=== PATIENT | male | born 1930 | race Caucasian/White ===

== ENCOUNTER 2018-04-05 22:04 | Inpatient (IN) | payer OTHER ==
[~2018-04-05] VITALS: Ht 170.2 cm; Wt 90.5 kg
[~2018-04-05 22:04] MED LIST: ALDACTONE25 MG PO; APLISOL5 TUB UNIT ID; ARICEPT10 MG PO; B-121000 MC2 PO; BIOFLEX TABLET1 EACH PO; CARDIZEM CD,CA180 MG PO; CELECOXIB200 MG PO; CENTRUM MEN'S1 EACH PO; CLOBEX118 ML TP; COUMADIN1 MG PO; COUMADIN5 MG PO; CRESTOR20 MG PO; CYMBALTA30 MG PO; DAILY VITE1 EAC1 PO; DOVONEX 0.005%60 GM PO; DOVONEX 0.005%60 GM TP; DULCOLAX10 MG PR; ELIQUIS2.5 MG PO; ELIQUIS5 MG PO; ENDOCET 5-3251 EACH PO; ENEMA133 M2 PR; ISTALOL5 ML BOTH EYES; LASIX40 MG PO; LO-DOSE ASPIRIN81 M1 PO; MELATONIN1 MG PO; MELOXICAM7.5 MG PO; MILK OF MAGN PO; MIRALAX17 GM PO; ONDANSETRON ODT4 MG PO; OSTEO BI-FLEX1 EAC1 PO; OXYCODONE-ACET1 EACH PO; PANTOPRAZOLE SO40 MG PO; PERCOCET 10/1 TABLET PO; PRAVACHOL10 MG PO; PROBIOTIC1 EAC1 PO; RANITIDINE HCL150 MG PO; SYNTHROID25 MCG PO; SYNTHROID50 MCG PO; TIMOPTIC-0100 DROP/1 BOTH EYES; TYLENOL REGULA325 MG PO; ULTRAM50 MG PO; VITAMIN D2000 UNIT PO; VITAMIN D32000 UNI1 PO; [UNRECOGNIZED DRUG - OTHER] TP
[2018-04-06 07:38] VITALS: BP 147/72
[2018-04-06 13:42] LABS: HEMATOCRIT 39.6 % (38.0-50.0); HEMOGLOBIN 13.7 G/DL (12.5-16.6); MCH 33.9 PG (29.0-34.0); MCHC 34.6 G/DL (30.0-36.0); PLATELET COUNT 82 K/uL (156-360); RBC DIS.WIDTH-CV 14.2 % (11.8-14.6); RBC DIS.WIDTH-SD 51.6 % (39-53); RED BLOOD COUNT 4.04 M/uL (4.00-5.50); WHITE BLOOD COUNT 7.4 K/uL (4.1-10.2)
[2018-04-06 17:20] VITALS: BP 160/80
[2018-04-06 20:06] VITALS: BP 180/75
[2018-04-06 23:32] VITALS: BP 146/88
[2018-04-07 04:14] VITALS: BP 169/81
[2018-04-07 05:52] LABS: CHLORIDE 107 MEQ/L (99-109); CREATININE 1.1 MG/DL (0.6-1.3); GFR ESTIMATE (CALCULATED) > 59 mL/min/ (58.99-99999); GLUCOSE 119 mg/dL (70-99); POTASSIUM 3.9 MEQ/L (3.7-5.4); SODIUM 139 MEQ/L (136-147); UREA NITROGEN (BUN) 16 mg/dL (9-23)
[2018-04-07 08:12] VITALS: BP 149/73
[2018-04-07 14:10] LABS: HEMATOCRIT 41.3 % (38.0-50.0); HEMOGLOBIN 13.9 G/DL (12.5-16.6); MCV 95.8 FL (86-99)
[2018-04-07 16:18] VITALS: BP 137/60
[2018-04-07 23:46] VITALS: BP 128/62
[2018-04-08 06:21] LABS: HEMATOCRIT 36.9 % (38.0-50.0); HEMOGLOBIN 12.4 G/DL (12.5-16.6); MCV 96.3 FL (86-99)
[2018-04-08 07:58] VITALS: BP 132/64
[2018-04-08] MEDS ORDERED: CELECOXIB200 MG PO (09:00)
[2018-04-08] MEDS ORDERED: DOCUSATE SODIU100 MG PO (09:00)
[2018-04-08] MEDS ORDERED: OXYCODONE HCL5 MG PO (09:00)
== END 2018-04-08 13:50 | disposition home health service (06) | DRG 470 ==
LOC: ENRESERV 22:04 → 3EAST 04-06 06:46 → 2SOUTH 04-06 06:46 → ENRESERV 04-06 12:41 → 2SOUTH 04-06 15:43 → 3EAST 04-06 16:38
PROVIDERS: Orthopaedic Surgery; Physician Assistant
PROC: 0SRB02A Replacement of Left Hip Joint with Metal on Polyethylene Synthetic Substitute, Uncemented, Open Approach (ICD-10-PCS; principal; 2018-04-06)
DX: M16.12 Unilateral primary osteoarthritis, left hip (principal); N18.2 Chronic kidney disease, stage 2 (mild); I12.9 Hypertensive chronic kidney disease with stage 1 through stage 4 chronic kidney disease, or unspecified chronic kidney disease; I48.2 Chronic atrial fibrillation; Z86.73 Personal history of transient ischemic attack (TIA), and cerebral infarction without residual deficits; Z96.641 Presence of right artificial hip joint; L40.9 Psoriasis, unspecified; Z87.891 Personal history of nicotine dependence; D69.6 Thrombocytopenia, unspecified; H40.9 Unspecified glaucoma; I73.9 Peripheral vascular disease, unspecified; K21.9 Gastro-esophageal reflux disease without esophagitis
CPT/HCPCS: 73501; 80048; 85014; 85018; 85027; J0131; J0690; J2250; J2405; J3010; J7050